=== PATIENT | male | born 1990 | race Caucasian/White ===

== ENCOUNTER 2017-03-29 11:15 | Emergency (ER) | payer SELFPAY ==
[~2017-03-29] VITALS: Ht 177.8 cm; Wt 78.2 kg
[~2017-03-29 11:15] MED LIST: HYDR1CAP85 PO; PIMO2TAB PO; SERT50TA PO; TRL300 PO
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
[2017-03-29 12:37] LABS: URINE APPEARANCE TURBID (CLEAR); URINE BILIRUBIN NEG (NEG); URINE COLOR DK YELLOW; URINE NITRITE NEG (NEG); URINE SPECIFIC GRAVITY 1.025 (1.000-1.030); UROBILINOGEN NEG (NEG)
[2017-03-29] MEDS ORDERED: LORAZEPAM 2 MG/ML 1 ML VIAL ONE (12:38)
[2017-03-29] MEDS ORDERED: HALOPERIDOL LACTATE 5 MG/ML 1 ML VIAL ONE (12:39)
[2017-03-29 12:42] LABS: MANUAL MICROSCOPIC REQUIRED? NO; REVIEW REQ? YES
[2017-03-29 12:45] LABS: MEAN CELL VOLUME 85.3 fL (80-100); MEAN CORPUSCULAR HEMOGLOBIN 30.8 pg (25-34); MEAN CORPUSCULAR HGB CONC 36.1 g/dl (32-36); MEAN PLATELET VOLUME 9.5 fL (7.4-10.4); PLATELET COUNT 339 K/uL (130-400); RED BLOOD COUNT 5.39 M/uL (4.7-6.1)
[2017-03-29 12:46] LABS: SULFASALICYLIC ACID NEG (NEG)
[2017-03-29 12:58] LABS: BENZODIAZEPINE, URINE POS (NEG); COCAINE,URINE NEG (NEG); PHENCYCLIDINE, URINE NEG (NEG)
[2017-03-29 13:13] LABS: BUN/CREATININE RATIO 7.9 (10-20); CALCIUM 9.5 mg/dl (8.5-10.1); POTASSIUM 3.7 mmol/L (3.5-5.1)
[2017-03-29 13:24] LABS: ALB/GLOB RATIO 1.4 (0.9-2); THYROID STIMULATING HORMONE 0.934 uIu/ml (0.300-4.500)
[2017-03-29 15:18] VITALS: O2SAT 98
--- NOTE | 2017-03-29 18:09 | DIAGNOSTIC IMAGING REPORT ---
HEAD WITHOUT CONTRAST (CT) CLINICAL HISTORY: 26 years-old Male with altered mental status. Acute altered mental status TECHNIQUE: Multiple axial CT images of the head were obtained without contrast. A dose lowering technique was utilized adhering to the principles of ALARA. CT DOSE: 537.48 mGy.cm COMPARISON: Head CT 10/02/2014. FINDINGS: No acute intracranial hemorrhage, midline shift, mass, large territorial ischemia or abnormal extra-axial collection. The calvarium is intact. The paranasal sinuses, mastoid air cells, and middle ear cavities are clear. IMPRESSION: No acute intracranial abnormality. The above report was generated using voice recognition software. It may contain grammatical, syntax or spelling errors. Electronically signed by: Al Owen M.D. 03/29/2017 6:07 PM Dictated Date/Time: 03/29/2017 6:04 PM
--- NOTE | 2017-03-29 23:31 | EMERGENCY ROOM VISIT NOTE ---
ED Visit Note First contact with patient: 17:57 This patient was originally seen by Dr. Deluca and a 302 petition was signed. The patient was signed out to me pending placement. Dr. Deluca also ordered a head CT which was unremarkable. The patient has been sleeping the entire time. The patient was signed out to Dr. Walker pending placement.
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
[2017-03-30] MEDS ORDERED: SERTRALINE HCL 100 MG TAB PO STA (13:19)
[2017-03-30] MEDS ORDERED: LORAZEPAM 1 MG TAB SL STA (13:20)
[2017-03-30] MEDS ORDERED: SERTRALINE HCL 50 MG TAB PO ONE (13:30)
[2017-03-30] MEDS ORDERED: NICOTINE 14 MG/24 HR TDSY TD STA (14:43)
[2017-03-30] MEDS ORDERED: IBUPROFEN 200 MG TAB PO STA (14:43)
--- NOTE | 2017-03-30 15:06 | EMERGENCY ROOM VISIT NOTE ---
ED Visit Note First contact with patient: 07:20 This patient was signed out to me at shift change by Dr. Walker. This patient had received Haldol and Ativan prior for psychosis and at 302 petition has been on completed. The patient was awaiting placement. He was comfortable. He did receive his morning Zoloft 150 mg. He also received Ativan 1 mg sublingual as he was felt feeling a little anxious but he was cooperative. He also received ibuprofen for a mild headache and nicotine patch. When I check on him he is resting comfortably and cooperative at this point. Maryanne , our psychiatric case manager specialist, is continuing to work on placement. He'll be signed out at shift change to the evening doctor.
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
[2017-03-31] MEDS ORDERED: SERT-234 PO (09:37)
[2017-03-31] MEDS ORDERED: SERTRALINE HCL 50 MG TAB PO ONE (10:30)
--- NOTE | 2017-03-31 14:34 | EMERGENCY ROOM VISIT NOTE ---
ED Visit Note First contact with patient: 14:33 s/o from Dr. Noel. 302 for psychosis and violent behavior ([facility] social security assessor ). Bedsearch prolonged in progress. Here 51 hours thus far. I reevaluated the patient on on and be calm and cooperative. This is consistent with report of his behavior since his initial sedation was metabolized after his violent outbursts. Upon further discussion with the patient I did find him to have delusional and bizarre thinking and pressured speech, tangential thoughts, and some confabulation or he did have insight into what brought him to the emergency department recognize that some may think is believed to be bizarre however he affirmed that they are true. Further explained to me the events leading to being brought by police initially which included him seeing a piece of glass outside of someone's house and being overwhelmed with the thought that if he were to break it "he would release the universe ". The patient did admit that this was bizarre however he feels he has recently had enlightenment after reading the Bible. Further acknowledges that his violent outburst was also unfortunate, however he reports that he has a history of PTSD regarding psychiatric hospitalization and felt threatened and provoked at that time. Given this patient's delusions and expressed thinking to act on these delusions at times I do believe his 302 continues to be appropriate. The case was discussed with psychiatry, Dr. Iglesias, who will arrange for psychiatry to evaluate the patient as a team in the morning. However in the interim, for his psychotic/delusional thoughts recommend 0.5 mg of Risperdal twice a day for now. Otherwise the patient continues to be calm and cooperative. Patient signed out to Dr. Suh.
[2017-03-31] MEDS ORDERED: NICOTINE 14 MG/24 HR TDSY ONE (16:47)
[2017-03-31] MEDS: RISPERIDONE ODT 0.5MG PO SCH (20:40)
[2017-04-01] MEDS ORDERED: ACETAMINOPHEN 500 MG TAB PO STA (05:20)
--- NOTE | 2017-04-01 07:37 | Psych Management Progress Note ---
Psychiatry Miscellaneous Date of Service: Apr 01, 2017. Patient has been reviewed with the psychiatric liaison nurse daily while awaiting placement in the emergency room on a 302 involuntary commitment for psychosis and agitation. I was contacted by the on-call psychiatrist last evening regarding the emergency room physician's request that the patient be seen by the psychiatry team today. Reviewed notes, and it appears the patient has been accepted to [facility] for inpatient psychiatric treatment. Spoke with Dr. Noel, who did not have a need for the patient to be seen today, as he is being transferred to another facility for inpatient treatment. Please notify us if this plan changes and we can be of assistance.
[2017-04-01] MEDS: RISPERIDONE ODT 0.5MG PO SCH (08:43)
[2017-04-01] MEDS ORDERED: LORAZEPAM 1 MG TAB PO STA (14:11)
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
[2017-04-01] MEDS: SERTRALINE HCL 50 MG TAB PO ONE (16:00)
[2017-04-01] MEDS ORDERED: RISPERIDONE ODT 1MG PO SCH (21:00)
[2017-04-01] MEDS ORDERED: RISPERIDONE 1 MG TAB PO STA (21:00)
--- NOTE | 2017-04-01 23:10 | EMERGENCY ROOM VISIT NOTE ---
ED Visit Note First contact with patient: 15:16 I received this patient in signout at the change of shift from Dr. Noel pending mental health placement. The patient was given 0.5 mg of oral Risperdal. He refused his Zoloft stating that he no longer takes this medication. Patient was evaluated by HOMER Thompson of psychiatry. occupational therapy director, Dr. Deluca, contacted Dr. Preciado of psychiatry. They feel strongly that they will have a bed available tomorrow. The patient and his father were informed of the plan. The patient is still under a 302 and has been refused by many facilities. He is not happy about being held in the emergency department for another night. The case has been signed out to Dr. Suh at the change of shift. Please see her notes for final disposition.
--- NOTE | 2017-04-02 06:45 | EMERGENCY ROOM VISIT NOTE ---
ED Visit Note First contact with patient: 06:44 No issues reported to me overnight by nursing staff. Pt awaiting placement. Has been here for 4 days[address] Signed out to Dr. Noel.
[2017-04-02 08:04] LABS: HYDROXYETHYLFLURAZEPAM CONF NEGATIVE NG/ML (CUTOFF=50); HYDROXYMIDAZOLAM NEGATIVE NG/ML (CUTOFF=50); HYDROXYTRIAZOLAM CONF NEGATIVE NG/ML (CUTOFF=50); TEMAZEPAM CONF NEGATIVE NG/ML (CUTOFF=50)
[2017-04-02] MEDS ORDERED: hydrOXYzine HCL 25 MG TAB PO PRN ×2 (08:15)
[2017-04-02] MEDS ORDERED: MAGNESIUM HYDROXIDE SUSP 30 ML UDC PO PRN (08:15)
[2017-04-02] MEDS ORDERED: ALUMINUM/MAGNESIUM SUSP 30 ML UDC PO PRN (08:15)
[2017-04-02] MEDS ORDERED: BISMUTH SUBSALICYLATE PER ML OMNICELL CHARGE PO PRN (08:15)
[2017-04-02] MEDS ORDERED: RISPERIDONE ODT 1MG PO PRN (08:15)
[2017-04-02] MEDS ORDERED: SODIUM CHLORIDE 0.65% NA SOLN 45 ML (OCEAN) PRN (08:15)
[2017-04-02] MEDS ORDERED: ACETAMINOPHEN 325 MG TAB PO PRN (08:15)
[2017-04-02] MEDS ORDERED: RISPERIDONE ODT 1MG PO SCH ×2 (09:00→21:00)
[2017-04-02] MEDS ORDERED: SERTRALINE HCL 100 MG TAB PO SCH (09:00)
[2017-04-02] MEDS ORDERED: RISPERIDONE ODT 1MG PO ONE (09:54)
[2017-04-02 09:56] VITALS: O2SAT 99
[2017-04-02 10:44] VITALS: BP 151/89; PULSE 89; TEMP 36.6; Ht 177.8 cm; Wt 78.2 kg
--- NOTE | 2017-04-02 11:52 | EMERGENCY ROOM VISIT NOTE ---
ED Visit Note The patient was admitted to 3 S at 9am. No issues.
[2017-04-03] MEDS ORDERED: RISPERIDONE ODT 1MG PO SCH (09:00)
== END 2017-04-02 09:45 | disposition still patient (30) ==
LOC: C.EDB 11:16 → C.EDA 04-02 09:45 → CANBEDREQ 04-02 11:03
DX: F30.9 Manic episode, unspecified (principal); F22 Delusional disorders; F11.21 Opioid dependence, in remission; F12.10 Cannabis abuse, uncomplicated; F10.10 Alcohol abuse, uncomplicated; F31.9 Bipolar disorder, unspecified; F95.2 Tourette's disorder; F42.8 Other obsessive-compulsive disorder; F17.200 Nicotine dependence, unspecified, uncomplicated

== ENCOUNTER 2017-04-02 08:09 | Inpatient (IN) | payer OTHER ==
[~2017-04-02] VITALS: Ht 177.8 cm; Wt 78.2 kg
[~2017-04-02 08:09] MED LIST changes: -HYDR1CAP85 PO; -PIMO2TAB PO; +SERT-234 PO; -SERT50TA PO; -TRL300 PO
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
[2017-04-02 11:27] VITALS: BP 151/89; PULSE 98; TEMP 36.6; Ht 177.8 cm; Wt 78.2 kg
[2017-04-02] MEDS ORDERED: ALUMINUM/MAGNESIUM SUSP 30 ML UDC PO PRN (13:30)
[2017-04-02] MEDS ORDERED: BISMUTH SUBSALICYLATE PER ML OMNICELL CHARGE PO PRN (13:30)
[2017-04-02] MEDS ORDERED: RISPERIDONE ODT 1MG PO PRN (13:30)
[2017-04-02] MEDS ORDERED: SODIUM CHLORIDE 0.65% NA SOLN 45 ML (OCEAN) PRN (13:30)
[2017-04-02] MEDS ORDERED: hydrOXYzine HCL 25 MG TAB PO PRN ×2 (13:30)
[2017-04-02] MEDS ORDERED: MAGNESIUM HYDROXIDE SUSP 30 ML UDC PO PRN (13:30)
[2017-04-02] MEDS: NICOTINE 21 MG/24 HR TDSY TD SCH (15:32)
[2017-04-02] MEDS: ACETAMINOPHEN 325 MG TAB PO PRN (18:37)
[2017-04-02] MEDS: RISPERIDONE ODT 1MG PO SCH (21:39)
[2017-04-03 06:53] VITALS: BP_SYST 126; BP_SYST 129; BP_DIAS 75; BP_DIAS 80; PULSE 69; PULSE 76; TEMP 36.5
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
[2017-04-03] MEDS: RISPERIDONE ODT 1MG PO SCH ×2 (08:18→21:09)
[2017-04-03] MEDS: LITHIUM CARBONATE SR 300 MG TAB (LITHOBID) PO SCH ×2 (15:52→18:23)
[2017-04-03] MEDS: ACETAMINOPHEN 325 MG TAB PO PRN (17:57)
[2017-04-03] MEDS ORDERED: LITHIUM CARBONATE SR 300 MG TAB (LITHOBID) PO SCH (20:00)
[2017-04-04 06:17] VITALS: BP_SYST 143; BP_SYST 162; BP_DIAS 88; BP_DIAS 92; PULSE 66; PULSE 98; TEMP 36.4
[2017-04-04] MEDS: NICOTINE 21 MG/24 HR TDSY TD SCH (08:25)
[2017-04-04] MEDS: RISPERIDONE ODT 1MG PO SCH (08:25)
[2017-04-04 09:01] LABS: CHOLESTEROL/HDL RATIO 3.7
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
[2017-04-04] MEDS: LITHIUM CARBONATE SR 300 MG TAB (LITHOBID) PO SCH ×2 (11:34→16:12)
[2017-04-04 19:22] VITALS: BP 150/80; PULSE 82; O2SAT 100
[2017-04-04] MEDS: RISPERIDONE 3 MG TAB PO SCH (21:25)
[2017-04-05 06:56] VITALS: BP 132/78; PULSE 75; TEMP 36.4
[2017-04-05] MEDS: LITHIUM CARBONATE SR 300 MG TAB (LITHOBID) PO SCH ×3 (08:23→15:55)
[2017-04-05] MEDS: RISPERIDONE 2 MG TAB PO SCH (08:23)
[2017-04-05] MEDS: NICOTINE 21 MG/24 HR TDSY TD SCH (08:31)
--- NOTE | 2017-04-05 12:14 | Psychiatric Progress Notes ---
Progress Note Date of Service Apr 05, 2017. Interval History Mark Mitchell is a 26-year-old male who currently lives in [place], has a history of bipolar disorder, and presented to the ER 03/29/17 with police due to manic and psychotic symptoms. He was in the emergency room for over 3 days on a 302 commitment, and was accepted on our unit when a bed became available. Chief Complaint "I feel like the medications are being changed every day". Subjective Patient was seen & assessed interval progress reviewed with Treatment Team. Per staff, the patient has been pleasant on the unit and fully participatory in the last 24 hours without acute events. His Risperdal was increased again slightly yesterday and staff report that he was complaining of some fatigue. Reviewed lithium level in therapeutic range following lithium loading and now on 300 mg 3 times a day with plan to recheck level early next week. On interview, patient expresses concern that he is feeling excessively drowsy at times however he denies feeling emotionally blunted. He reports to me that he chronically is on the hyper side and "my baseline isn't your baseline. I just want the doctors to remember that." He describes some grandiose thinking, for example reporting that he could teach all of the classes that are going on here. He indicates that he does perceive some benefit from being around others who are also struggling which makes him feel good about himself. He denies feeling slowed in his movements, unsteady in his gait, or dystonic this morning. He is willing to continue taking the Risperdal and lithium and demonstrates insight regarding his bipolar diagnosis. Review of Systems Neurologic: + problem reported (denies dystonia or imbalance) Sleep Information Total Hours of Sleep: 6.25 Meal Information Percent of Breakfast Consumed: 100 Percent of Lunch Consumed: 100 Percent of Dinner Consumed: 100 Mental Status Exam During interview pt is: alert and oriented, cooperative Appearance: appropriately dressed (pajama pants and a T-shirt), appropriately groomed, appeared stated age Eye contact is: good Motor behavior is: steady gait & station, psychomotor agitation (jiggling legs , fidgeting with hands) Speech: other (speech is rapid and over productive but he is interruptible) Affect: other (Expansive and bright.) Mood is: other (I'm good) Thought process: tangential, flight of ideas Thought content: other (The patient is expansive and demonstrates non- delusional grandiosity.) Suicidal thought are: denied Homicidal thoughts are: denied Hallucinations: denies auditory, denies visual Cognition: memory grossly intact, language grossly intact Intelligence estimated to be: consistent with level of education Insight: impaired Judgement: impaired Summary of Past History Records from [facility] received and reviewed. The patient saw SALMA Patterson, for an initial psychiatric assessment on 11/01/2015. He states he had been out of medications for several months, and had had a recent brief episodes of both depression and june. He also reported irritability, obsessive thoughts about his former relationship (had just broken up with a girlfriend), verbal aggression towards his mother, and sleep disruption. He denied compulsions, anxiety, PTSD, eating disorder, and substance abuse, but admitted he did abuse substances in the past. He reported problems with tics, which changed frequently, and moved to different body parts. He reported that he had been in family based therapy and had a blended case work aide in the past, but currently had no providers. He had seen Jammie Linares at [facility] in the past, but was noncompliant so ran out of medications. He reported a history of numerous arrests, and stated he was intoxicated on substances each time he was arrested. He had been incarcerated 5 times, the longest stay being 7-1/2 months in the [facility]. He was on probation at the time of the assessment. He was diagnosed with schizoaffective disorder, bipolar type, Tourette's, alcohol dependence, cannabis dependence, and opiate dependence. He was restarted on sertraline and Orap for tics and psychotic symptoms, as these had worked well in the past. He followed up 11/14/16 and reported improvement in mood, with 2 days of euphoria since the last appointment, and ongoing irritability. His tics have improved, including a neck twitch and a vocal twitch. He talked about "practicing my telepathy" and "playing mind games" with his mother. His Orap was increased to 1 mg every morning and 2 mg daily at bedtime, sertraline was continued, and he was started on Topamax 25 mg twice a day for mood stabilization. He was to return in 4 weeks for an appointment, but no further documentation was sent. Medication Trials (1) Past Psych Medications sertraline fluoxetine pimozide hydroxyzine oxcarbazepine Tenex ziprasidone aripiprazole risperidone lithium - on it for a long time, then just hit that plateau, became ineffective Depakote - briefly, can't recall response Frank Last Edited By: Yanely Preciado on Apr 03, 2017 10:14 Plan (1) Bipolar disorder 04/02 - Medically necessary private room for agitation, psychosis and june. Limit stimulation. - Continue risperidone, and increased to 1 mg in the morning and 2 mg daily at bedtime to target manic and psychotic symptoms. - Hold sertraline as this may be contributing to june. Contact PCP who has been prescribing this to coordinate care. - Check fasting lipid profile and glucose tomorrow morning for monitoring on an atypical antipsychotic. - Explore mood stabilizing options, possibly a return to lithium, which he reports was helpful for a time in the past. - Get records from Dr. Butt and Jammie Linares, whom he saw in the past. He will need referral for outpatient psychiatric care, and would also recommend therapy and case management. - Encourage group attendance and participation, educate the patient about his diagnosis, and work on healthy coping skills and discharge safety plan. - Family meeting with father whom he lives with. - Advised patient that I'll be filing for a 303 commitment as he is not yet ready for discharge, and he expressed understanding. 04/03 - 303 granted. - Fasting labs ordered for tomorrow. Continue risperidone 1mg qam and 2mg qhs. - Family meeting with mother held today, but will also need to involve father ( whom he lives with) prior to discharge. - [place] loading tonight, which patient consented to. He has been on lithium before and reports good response in the past. Check EKG today. Trough level tomorrow, then start maintenance dosing. - Discontinue private room as patient has been able to interact appropriately with others and has not been violent since 03/29. 04/04 - [place] level this morning after loading was 0.8. Will begin Lithobid 300 mg TID and recheck level on 04/07/17 - Increase dose of Risperidone to 2 mg qAM and 3 mg HS. - Patient remains manic, but by all reports is improving in that he is sleeping better, is less hyperverbal and pressured, to the degree that he does not interrupt others when they are addressing him, and his voice is less loud. - He remains somewhat grandiose, and his judgement and insight remain impaired, but he does not appear to be delusional at this point. 04/05 - Showing steady improvements and attenuation of acute june. We'll continue the lithium and Risperdal unchanged today which he is tolerating adequately. We'll plan to recheck lithium level on the as previously ordered. (2) Polysubstance abuse Patient reports a history of abusing many illicit and prescription drugs as well as alcohol. He had been sober for a period while on probation, but began using cannabis again this past summer. He has been to rehabilitation multiple times and in outpatient substance abuse treatment in the past. He should not be prescribed controlled substances outside of the hospital due to the high risk of abuse, misuse, and diversion. 04/04/17 The importance of maintaining sobriety and abstinence was reinforced with the patient. (3) Cannabis abuse Patient has been smoking cannabis since he went off probation this past summer, and has a long history of polysubstance abuse. As his symptoms improve, he will need ongoing education about the risks of substance abuse and the recommendations for abstinence. Discharge / Aftercare Planning [place] Care Physician: [place] [facility] [place]iatrist: Name: Jammie Stubbs PA-C Date of Appointment: Jun 06, 2017 Time of Appointment: 10:15 Appointment Notes: You are on the cancellation list for an earlier appt, Therapist: Name: None Visit Code E&M Code: 52901 Risk Factors Assessment Male: Yes : Yes /single/: Yes Higher / Fall in social status: No Access to guns: No Health problems: No Mental Health Diagnoses: Yes Substance use disorders: Yes Previous attempt: No Family history of suicide: No Previous psychiatric stay: Yes Hopelessness: No Smoker: Yes Protective Factors Assessment Denominational beliefs: Yes : No Responsible for young children: No Employed: Yes Stable relationships: No Supportive family: Yes Good rapport with provider: No Data Vital Signs Last 24 Hrs: Date Time Temp Pulse Resp B/P (MAP) Pulse Ox O2 Delivery O2 Flow Rate FiO2 04/05/17 06:56 36.4 75 04/05/17 06:56 36.4 75 16 132/78 (96) 04/04/17 19:22 82 16 150/80 (103) 100 Room Air Meds Administered Last 24 Hrs: Meds Administered (Past 24Hrs) Medications (Trade) Dose Ordered Sig/Yandy Route Start Time Stop Time Status Last Admin Dose Admin [place] Carbonate (Lithobid Tab) 600 mg 1600,1800 PO 04/03/17 16:00 04/03/17 18:01 DC 04/03/17 18:23 600 MG [place] Carbonate (Lithobid Tab) 900 mg 2000 PO 04/03/17 20:00 04/03/17 20:01 DC 04/03/17 21:04 900 MG [place] Carbonate (Lithobid Tab) 300 mg [id number] PO 04/04/17 12:00 05/04/17 11:59 04/05/17 08:23 300 MG Risperidone (Risperdal Tab) 2 mg QAM PO 04/05/17 09:00 05/05/17 08:59 04/05/17 08:23 2 MG Risperidone (Risperdal Tab) 3 mg HS PO 04/04/17 22:00 05/04/17 21:59 04/04/17 21:25 3 MG Problem Qualifiers (1) Bipolar disorder: Current bipolar episode type: manic Current episode severity: severe Psychotic features: with psychotic features
[2017-04-05] MEDS ORDERED: NICOTINE 7 MG/24 HR TDSY TD ONE (16:45)
[2017-04-05] MEDS: RISPERIDONE 3 MG TAB PO SCH (21:34)
[2017-04-06 07:11] VITALS: BP_SYST 149; BP_SYST 150; BP_DIAS 77; BP_DIAS 84; PULSE 81; PULSE 88; TEMP 36.4
[2017-04-06] MEDS: RISPERIDONE 2 MG TAB PO SCH (08:24)
[2017-04-06] MEDS: LITHIUM CARBONATE SR 300 MG TAB (LITHOBID) PO SCH ×3 (08:24→15:43)
[2017-04-06] MEDS: NICOTINE 7 MG/24 HR TDSY TD SCH (08:25)
[2017-04-06 08:56] VITALS: BP_SYST 149; BP_SYST 150; BP_DIAS 77; BP_DIAS 84; PULSE 81; PULSE 88; TEMP 36.4
--- NOTE | 2017-04-06 13:04 | Psychiatric Progress Notes ---
Progress Note Date of Service Apr 06, 2017. Interval History Mark Mitchell is a 26-year-old male who currently lives in [place], has a history of bipolar disorder, and presented to the ER 03/29/17 with police due to manic and psychotic symptoms. He was in the emergency room for over 3 days on a 302 commitment, and was accepted on our unit when a bed became available. Chief Complaint "I'm doing very well thank you". Subjective Patient was seen & assessed interval progress reviewed with Treatment Team. Per staff, patient is participating well in groups. Continues to complain of feeling foggy and napping on and off. On interview today he describes feeling more "balanced." He now expresses feeling grateful for an opportunity to sleep. He again denies dystonia or akathisia. "It really makes a difference when I don't feel like I'm going to jump out of my skin." Review of Systems Neurologic: No memory loss, No paralysis, No weakness, No numbness/tingling, No vertigo, No balance problems, No problem reported Psychiatric: + problem reported (denies agitation) Sleep Information Total Hours of Sleep: 9.25 Meal Information Percent of Breakfast Consumed: 100 Percent of Lunch Consumed: 100 Percent of Dinner Consumed: 100 Mental Status Exam During interview pt is: alert and oriented, cooperative Appearance: appropriately dressed, appropriately groomed, appeared stated age Eye contact is: good Motor behavior is: steady gait & station, psychomotor agitation (but does appear less restless today. He shakes my hand with both of his in a dramatic manner) Speech: other (speech is notably less pressured today) Affect: other (Expansive and bright.) Mood is: other (good) Thought process: other (thoughts are quick but logical) Thought content: other (less grandiosity evident today) Suicidal thought are: denied Homicidal thoughts are: denied Hallucinations: denies auditory, denies visual Cognition: memory grossly intact, language grossly intact Intelligence estimated to be: consistent with level of education Insight: limited Judgement: limited Summary of Past History Records from [facility] received and reviewed. The patient saw SALMA Patterson, for an initial psychiatric assessment on 11/01/2015. He states he had been out of medications for several months, and had had a recent brief episodes of both depression and june. He also reported irritability, obsessive thoughts about his former relationship (had just broken up with a girlfriend), verbal aggression towards his mother, and sleep disruption. He denied compulsions, anxiety, PTSD, eating disorder, and substance abuse, but admitted he did abuse substances in the past. He reported problems with tics, which changed frequently, and moved to different body parts. He reported that he had been in family based therapy and had a blended briefcase sewer in the past, but currently had no providers. He had seen Jammie Linares at [facility] in the past, but was noncompliant so ran out of medications. He reported a history of numerous arrests, and stated he was intoxicated on substances each time he was arrested. He had been incarcerated 5 times, the longest stay being [facility] in [facility]. He was on probation at the time of the assessment. He was diagnosed with schizoaffective disorder, bipolar type, Tourette's, alcohol dependence, cannabis dependence, and opiate dependence. He was restarted on sertraline and Orap for tics and psychotic symptoms, as these had worked well in the past. He followed up 11/14/16 and reported improvement in mood, with 2 days of euphoria since the last appointment, and ongoing irritability. His tics have improved, including a neck twitch and a vocal twitch. He talked about "practicing my telepathy" and "playing mind games" with his mother. His Orap was increased to 1 mg every morning and 2 mg daily at bedtime, sertraline was continued, and he was started on Topamax 25 mg twice a day for mood stabilization. He was to return in 4 weeks for an appointment, but no further documentation was sent. Medication Trials (1) Past Psych Medications sertraline fluoxetine pimozide hydroxyzine oxcarbazepine Tenex ziprasidone aripiprazole risperidone lithium - on it for a long time, then just hit that plateau, became ineffective Depakote - briefly, can't recall response Frank Last Edited By: Yanely Preciado on Apr 03, 2017 10:14 Plan (1) Bipolar disorder 04/02 - Medically necessary private room for agitation, psychosis and june. Limit stimulation. - Continue risperidone, and increased to 1 mg in the morning and 2 mg daily at bedtime to target manic and psychotic symptoms. - Hold sertraline as this may be contributing to june. Contact PCP who has been prescribing this to coordinate care. - Check fasting lipid profile and glucose tomorrow morning for monitoring on an atypical antipsychotic. - Explore mood stabilizing options, possibly a return to lithium, which he reports was helpful for a time in the past. - Get records from Dr. Butt and Jammie Linares, whom he saw in the past. He will need referral for outpatient psychiatric care, and would also recommend therapy and case management. - Encourage group attendance and participation, educate the patient about his diagnosis, and work on healthy coping skills and discharge safety plan. - Family meeting with father whom he lives with. - Advised patient that I'll be filing for a 303 commitment as he is not yet ready for discharge, and he expressed understanding. 04/03 - 303 granted. - Fasting labs ordered for tomorrow. Continue risperidone 1mg qam and 2mg qhs. - Family meeting with mother held today, but will also need to involve father ( whom he lives with) prior to discharge. - [place] loading tonight, which patient consented to. He has been on lithium before and reports good response in the past. Check EKG today. Trough level tomorrow, then start maintenance dosing. - Discontinue private room as patient has been able to interact appropriately with others and has not been violent since 03/29. 04/04 - [place] level this morning after loading was 0.8. Will begin Lithobid 300 mg TID and recheck level on 04/07/17 - Increase dose of Risperidone to 2 mg qAM and 3 mg HS. - Patient remains manic, but by all reports is improving in that he is sleeping better, is less hyperverbal and pressured, to the degree that he does not interrupt others when they are addressing him, and his voice is less loud. - He remains somewhat grandiose, and his judgement and insight remain impaired, but he does not appear to be delusional at this point. 04/05 - Showing steady improvements and attenuation of acute june. We'll continue the lithium and Risperdal unchanged today which he is tolerating adequately. We'll plan to recheck lithium level on the as previously ordered. 04/06 - Continues to show improvement with reduction in manic symptomatology and will continue current medication regimen unchanged today which appears to be well tolerated. - [place] level ordered for tomorrow a.m. (2) Polysubstance abuse Patient reports a history of abusing many illicit and prescription drugs as well as alcohol. He had been sober for a period while on probation, but began using cannabis again this past summer. He has been to rehabilitation multiple times and in outpatient substance abuse treatment in the past. He should not be prescribed controlled substances outside of the hospital due to the high risk of abuse, misuse, and diversion. 04/04/17 The importance of maintaining sobriety and abstinence was reinforced with the patient. (3) Cannabis abuse Patient has been smoking cannabis since he went off probation this past summer, and has a long history of polysubstance abuse. As his symptoms improve, he will need ongoing education about the risks of substance abuse and the recommendations for abstinence. Discharge / Aftercare Planning Primary Care Physician: Name: [facility] Psychiatrist: Name: Jammie Stubbs PA-C Date of Appointment: Jun 06, 2017 Time of Appointment: 10:15 Appointment Notes: You are on the cancellation list for an earlier appt, Therapist: Name: None Visit Code E&M Code: 10728 Risk Factors Assessment Male: Yes : Yes /single/: Yes Higher / Fall in social status: No Access to guns: No Health problems: No Mental Health Diagnoses: Yes Substance use disorders: Yes Previous attempt: No Family history of suicide: No Previous psychiatric stay: Yes Hopelessness: No Smoker: Yes Protective Factors Assessment Protestant beliefs: Yes : No Responsible for young children: No Employed: Yes Stable relationships: No Supportive family: Yes Good rapport with provider: No Data Vital Signs Last 24 Hrs: Date Time Temp Pulse Resp B/P (MAP) Pulse Ox O2 Delivery O2 Flow Rate FiO2 04/06/17 08:56 36.4 81 16 150/77 (101) 88 149/84 (105) 04/06/17 07:11 36.4 81 16 150/77 88 149/84 Meds Administered Last 24 Hrs: Meds Administered (Past 24Hrs) Medications (Trade) Dose Ordered Sig/Yanyd Route Start Time Stop Time Status Last Admin Dose Admin Risperidone (Risperdal Tab) 2 mg QAM PO 04/05/17 09:00 05/05/17 08:59 04/06/17 08:24 2 MG Risperidone (Risperdal Tab) 3 mg HS PO 04/04/17 22:00 05/04/17 21:59 04/05/17 21:34 3 MG Nicotine (Nicoderm Cq 7 Mg Patch) 1 patch QAM TD 04/06/17 09:00 05/06/17 08:59 04/06/17 08:25 1 PATCH Miscellaneous (Remove Nicoderm Patch) 1 ea HS N/A 04/05/17 22:00 05/05/17 21:59 04/05/17 21:32 1 EA Nicotine (Nicoderm Cq 7 Mg Patch) 1 patch 1645 ONCE TD 04/05/17 16:45 04/05/17 16:46 DC 04/05/17 17:34 1 PATCH Problem Qualifiers (1) Bipolar disorder: Current bipolar episode type: manic Current episode severity: severe Psychotic features: with psychotic features
[2017-04-06] MEDS: RISPERIDONE 3 MG TAB PO SCH (21:53)
[2017-04-07 06:29] VITALS: BP_SYST 135; BP_SYST 138; BP_DIAS 88; BP_DIAS 90; PULSE 71; PULSE 85; TEMP 36.4
[2017-04-07 06:31] VITALS: BP_SYST 135; BP_SYST 138; BP_DIAS 88; BP_DIAS 90; PULSE 71; PULSE 85; TEMP 36.4
[2017-04-07] MEDS: LITHIUM CARBONATE SR 300 MG TAB (LITHOBID) PO SCH ×2 (09:34→12:10)
[2017-04-07] MEDS: RISPERIDONE 2 MG TAB PO SCH (09:34)
[2017-04-07] MEDS: NICOTINE 7 MG/24 HR TDSY TD SCH (09:35)
--- NOTE | 2017-04-07 13:35 | Psychiatric Progress Notes ---
Progress Note Date of Service Apr 07, 2017. Interval History Mark Mitchell is a 26-year-old male who currently lives in [place], has a history of bipolar disorder, and presented to the ER 03/29/17 with police due to manic and psychotic symptoms. He was in the emergency room for over 3 days on a 302 commitment, and was accepted on our unit when a bed became available. Chief Complaint "I can't lie, I'm a little frustrated.". Subjective Patient was seen & assessed interval progress reviewed with Treatment Team. The patient says that he is frustrated today, feeling that his treatment isn't moving as fast as he would like it to. He says that he plans to withdraw from [facility] for this semester and return, "When I'm back on my feet.". He voices commitment to staying on the meds. [place] level today is 0.4 and is in agreement with plan to increase Lithobid to 1200 mg. daily and push to HS. He feels that he is back to baseline in terms of speed of his thinking and energy level. He qualifies this to remind me that he has Tourette's and ADHD and is always moving and talking faster than others. He agrees that he has had to adjust to being on meds that slow him down as he likes the creative person he is when hypomanic. In discussing previous barriers to treatment, he says that money has been a problem. He was "resistant" to paying his copays before and eventually stopped seeing his psychiatric provider when he had a bill in arrears. He was also at times resistant to taking the meds, both of which he says he is now OK with. We discuss the need to have prompt psych follow up after discharge in view of lithium and need for levels, and he agrees that he should not be discharged before appropriate appts are found. Review of Systems Constitutional: No fever, No chills, No sweats, No weight loss, No weakness, No fatigue, No problem reported ENT: No hearing loss, No unusual epistaxis, No nasal symptoms, No sore throat, No tinnitus, No dental problems, No trouble swallowing, No problem reported Respiratory: No cough, No sputum, No wheezing, No shortness of breath, No dyspnea on exertion, No dyspnea at rest, No hemoptysis, No problem reported Cardiovascular: No chest pain, No orthopnea, No PND, No edema, No claudication , No palpitations, No problem reported Musculoskeletal: No joint pain, No muscle pain, No swelling, No calf pain, No problem reported Neurologic: No memory loss, No paralysis, No weakness, No numbness/tingling, No vertigo, No balance problems, No problem reported Psychiatric: + problem reported ("Frustrated") Sleep Information Total Hours of Sleep: 5.75 Meal Information Percent of Breakfast Consumed: 100 Percent of Lunch Consumed: 100 Percent of Dinner Consumed: 100 Mental Status Exam During interview pt is: alert and oriented, cooperative Appearance: appropriately dressed, appropriately groomed, appeared stated age Eye contact is: good Motor behavior is: steady gait & station, psychomotor agitation (but does appear less restless today. He shakes my hand with both of his in a dramatic manner) Speech: loud, other (rapid) Affect: blunted Mood is: other ("frustrated") Thought process: tangential Thought content: reality based without delusions, other (less grandiosity evident today) Suicidal thought are: denied Homicidal thoughts are: denied Hallucinations: denies auditory, denies visual Cognition: memory grossly intact, language grossly intact Intelligence estimated to be: consistent with level of education Insight: limited Judgement: limited Summary of Past History Records from [facility] received and reviewed. The patient saw SALMA Patterson for an initial psychiatric assessment on 11/01/2015. He states he had been out of medications for several months, and had had a recent brief episodes of both depression and june. He also reported irritability, obsessive thoughts about his former relationship (had just broken up with a girlfriend), verbal aggression towards his mother, and sleep disruption. He denied compulsions, anxiety, PTSD, eating disorder, and substance abuse, but admitted he did abuse substances in the past. He reported problems with tics, which changed frequently, and moved to different body parts. He reported that he had been in family based therapy and had a blended therapeutic case manager in the past, but currently had no providers. He had seen Jammie Linares at [facility] in the past, but was noncompliant so ran out of medications. He reported a history of numerous arrests, and stated he was intoxicated on substances each time he was arrested. He had been incarcerated 5 times, the longest stay being 7-1/2 months in the [facility]. He was on probation at the time of the assessment. He was diagnosed with schizoaffective disorder, bipolar type, Tourette's, alcohol dependence, cannabis dependence, and opiate dependence. He was restarted on sertraline and Orap for tics and psychotic symptoms, as these had worked well in the past. He followed up 11/14/16 and reported improvement in mood, with 2 days of euphoria since the last appointment, and ongoing irritability. His tics have improved, including a neck twitch and a vocal twitch. He talked about "practicing my telepathy" and "playing mind games" with his mother. His Orap was increased to 1 mg every morning and 2 mg daily at bedtime, sertraline was continued, and he was started on Topamax 25 mg twice a day for mood stabilization. He was to return in 4 weeks for an appointment, but no further documentation was sent. Medication Trials (1) Past Psych Medications sertraline fluoxetine pimozide hydroxyzine oxcarbazepine Tenex ziprasidone aripiprazole risperidone lithium - on it for a long time, then just hit that plateau, became ineffective Depakote - briefly, can't recall response Frank Last Edited By: Yanely Preciado on Apr 03, 2017 10:14 Impression The patient is frustrated with being in the hospital, but is appropriate in his behavior. His speech remains rapid and thoughts tangential but he admits the meds are slowing him down. [place] level today is 0.4 so will increase Lithobid to 1200 mg and redistribute all to HS. His OP provider cannot give him an appt until May, but the patient will need to be seen sooner in view of need for lithium adjustments and med management. Plan (1) Bipolar disorder 04/02 - Medically necessary private room for agitation, psychosis and june. Limit stimulation. - Continue risperidone, and increased to 1 mg in the morning and 2 mg daily at bedtime to target manic and psychotic symptoms. - Hold sertraline as this may be contributing to june. Contact PCP who has been prescribing this to coordinate care. - Check fasting lipid profile and glucose tomorrow morning for monitoring on an atypical antipsychotic. - Explore mood stabilizing options, possibly a return to lithium, which he reports was helpful for a time in the past. - Get records from Dr. Butt and Jammie [place], whom he saw in the past. He will need referral for outpatient psychiatric care, and would also recommend therapy and case management. - Encourage group attendance and participation, educate the patient about his diagnosis, and work on healthy coping skills and discharge safety plan. - Family meeting with father whom he lives with. - Advised patient that I'll be filing for a 303 commitment as he is not yet ready for discharge, and he expressed understanding. 04/03 - 303 granted. - Fasting labs ordered for tomorrow. Continue risperidone 1mg qam and 2mg qhs. - Family meeting with mother held today, but will also need to involve father ( whom he lives with) prior to discharge. - [place] loading tonight, which patient consented to. He has been on lithium before and reports good response in the past. Check EKG today. Trough level tomorrow, then start maintenance dosing. - Discontinue private room as patient has been able to interact appropriately with others and has not been violent since 03/29. 04/04 - [place] level this morning after loading was 0.8. Will begin Lithobid 300 mg TID and recheck level on 04/07/17 - Increase dose of Risperidone to 2 mg qAM and 3 mg HS. - Patient remains manic, but by all reports is improving in that he is sleeping better, is less hyperverbal and pressured, to the degree that he does not interrupt others when they are addressing him, and his voice is less loud. - He remains somewhat grandiose, and his judgement and insight remain impaired, but he does not appear to be delusional at this point. 04/05 - Showing steady improvements and attenuation of acute june. We'll continue the lithium and Risperdal unchanged today which he is tolerating adequately. We'll plan to recheck lithium level on the as previously ordered. 04/06 - Continues to show improvement with reduction in manic symptomatology and will continue current medication regimen unchanged today which appears to be well tolerated. - [place] level ordered for tomorrow a.m. 04/07 - Increase Lithobid to 1200 mg. all at HS (2) Polysubstance abuse Patient reports a history of abusing many illicit and prescription drugs as well as alcohol. He had been sober for a period while on probation, but began using cannabis again this past summer. He has been to rehabilitation multiple times and in outpatient substance abuse treatment in the past. He should not be prescribed controlled substances outside of the hospital due to the high risk of abuse, misuse, and diversion. 04/04/17 The importance of maintaining sobriety and abstinence was reinforced with the patient. (3) Cannabis abuse Patient has been smoking cannabis since he went off probation this past summer, and has a long history of polysubstance abuse. As his symptoms improve, he will need ongoing education about the risks of substance abuse and the recommendations for abstinence. Discharge / Aftercare Planning Primary Care Physician: Name: [facility] Psychiatrist: Name: Jammie Stubbs PA-C Date of Appointment: Jun 06, 2017 Time of Appointment: 10:15 Appointment Notes: You are on the cancellation list for an earlier appt, Therapist: Name: Cece Visit Code E&M Code: 87572 Risk Factors Assessment Male: Yes : Yes /single/: Yes Higher / Fall in social status: No Access to guns: No Health problems: No Mental Health Diagnoses: Yes Substance use disorders: Yes Previous attempt: No Family history of suicide: No Previous psychiatric stay: Yes Hopelessness: No Smoker: Yes Protective Factors Assessment Tenriism beliefs: Yes : No Responsible for young children: No Employed: Yes Stable relationships: No Supportive family: Yes Good rapport with provider: No Data Vital Signs Last 24 Hrs: Date Time Temp Pulse Resp B/P (MAP) Pulse Ox O2 Delivery O2 Flow Rate FiO2 04/07/17 06:31 36.4 71 18 135/90 85 138/88 04/07/17 06:29 36.4 71 18 135/90 (105) 85 138/88 (105) Meds Administered Last 24 Hrs: Meds Administered (Past 24Hrs) Medications (Trade) Dose Ordered Sig/Yandy Route Start Time Stop Time Status Last Admin Dose Admin Nicotine (Nicoderm Cq 7 Mg Patch) 1 patch QAM TD 04/06/17 09:00 05/06/17 08:59 04/06/17 08:25 1 PATCH Miscellaneous (Remove Nicoderm Patch) 1 ea HS N/A 04/05/17 22:00 05/05/17 21:59 04/06/17 21:54 1 EA Nicotine (Nicoderm Cq 7 Mg Patch) 1 patch 1645 ONCE TD 04/05/17 16:45 04/05/17 16:46 DC 04/05/17 17:34 1 PATCH Lab Results Last 24 Hrs: Last 24 Hours Test 04/07/17 07:46 [place] Level 0.4 mMOL/L Problem Qualifiers (1) Bipolar disorder: Current bipolar episode type: manic Current episode severity: severe Psychotic features: with psychotic features
[2017-04-07] MEDS ORDERED: LITHIUM CARBONATE SR 300 MG TAB (LITHOBID) PO ONE (22:00)
[2017-04-07] MEDS: RISPERIDONE 3 MG TAB PO SCH (22:17)
[2017-04-08 06:54] VITALS: BP_SYST 131; BP_SYST 143; BP_DIAS 80; BP_DIAS 84; PULSE 79; PULSE 90; TEMP 36.5
[2017-04-08 06:55] VITALS: BP 131/80; PULSE 79; PULSE 90; TEMP 36.5; O2SAT 100
[2017-04-08] MEDS: RISPERIDONE 2 MG TAB PO SCH (07:56)
[2017-04-08] MEDS: NICOTINE 7 MG/24 HR TDSY TD SCH (07:57)
--- NOTE | 2017-04-08 14:21 | Psychiatric Progress Notes ---
Progress Note Date of Service Apr 08, 2017. Interval History Mark Mitchell is a 26-year-old male who currently lives in [place], has a history of bipolar disorder, and presented to the ER 03/29/17 with police due to manic and psychotic symptoms. He was in the emergency room for over 3 days on a 302 commitment, and was accepted on our unit when a bed became available. Chief Complaint "OK but I'm anxious about the plans here. ". Subjective Patient was seen & assessed interval progress reviewed with Treatment Team. Doug says that he is doing OK. He had a good conversation with one of the counselor's last evening that helped him to put the hospitalization and his condition in perspective, seeing it as "recalibrating". He was able to relax more and "woke up on the right side of the bed" today. He was up early, at 0615 , but was able to rest for another hour or so after breakfast. He tolerated the shift in lithium dosage last night, and denies tremor or GI symptoms. He is still focused on wanting to leave as soon as possible but understands our concerns that appropriate follow up be scheduled first. He says that he has enjoyed the time with an elderly peer, who he walks with in the evening, talking with her. Review of Systems Constitutional: No fever, No chills, No sweats, No weight loss, No weakness, No fatigue, No problem reported ENT: No hearing loss, No unusual epistaxis, No nasal symptoms, No sore throat, No tinnitus, No dental problems, No trouble swallowing, No problem reported Respiratory: No cough, No sputum, No wheezing, No shortness of breath, No dyspnea on exertion, No dyspnea at rest, No hemoptysis, No problem reported Cardiovascular: No chest pain, No orthopnea, No PND, No edema, No claudication , No palpitations, No problem reported Abdomen: No pain, No nausea, No vomiting, No diarrhea, No constipation, No GI bleeding, No problem reported Musculoskeletal: No joint pain, No muscle pain, No swelling, No calf pain, No problem reported Neurologic: No memory loss, No paralysis, No weakness, No numbness/tingling, No vertigo, No balance problems, No problem reported Psychiatric: No depression symptoms, No anhedonism, No anxiety, No insomnia, No substance abuse, No problem reported Integumentary: No rash, No itch, No new/changing skin lesions, No color change , No bleeding, No problem reported Sleep Information Total Hours of Sleep: 6.50 Meal Information Percent of Breakfast Consumed: 100 Percent of Lunch Consumed: 100 Percent of Dinner Consumed: 100 Mental Status Exam During interview pt is: alert and oriented, cooperative Appearance: appropriately dressed, appropriately groomed, appeared stated age Eye contact is: good Motor behavior is: steady gait & station, psychomotor agitation (but does appear less restless today. He shakes my hand with both of his in a dramatic manner) Speech: loud, other (rapid) Affect: blunted Mood is: other ("frustrated") Thought process: tangential Thought content: reality based without delusions, other (less grandiosity evident today) Suicidal thought are: denied Homicidal thoughts are: denied Hallucinations: denies auditory, denies visual Cognition: memory grossly intact, language grossly intact Intelligence estimated to be: consistent with level of education Insight: limited Judgement: limited Summary of Past History [facility] from [facility] received and reviewed. The patient saw SALMA Patterson, for an initial psychiatric assessment on 11/01/2015. He states he had been out of medications for several months, and had had a recent brief episodes of both depression and june. He also reported irritability, obsessive thoughts about his former relationship (had just broken up with a girlfriend), verbal aggression towards his mother, and sleep disruption. He denied compulsions, anxiety, PTSD, eating disorder, and substance abuse, but admitted he did abuse substances in the past. He reported problems with tics, which changed frequently, and moved to different body parts. 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 He had seen Jammie Linares at [facility] in the past, but was noncompliant so ran out of medications. He reported a history of numerous arrests, and stated he was intoxicated on substances each time he was arrested. He had been incarcerated 5 times, the longest stay being 7-1/2 months in the [facility]. He was on probation at the time of the assessment. He was diagnosed with schizoaffective disorder, bipolar type, Tourette's, alcohol dependence, cannabis dependence, and opiate dependence. He was restarted on sertraline and Orap for tics and psychotic symptoms, as these had worked well in the past. He followed up 11/14/16 and reported improvement in mood, with 2 days of euphoria since the last appointment, and ongoing irritability. His tics have improved, including a neck twitch and a vocal twitch. He talked about "practicing my telepathy" and "playing mind games" with his mother. His Orap was increased to 1 mg every morning and 2 mg daily at bedtime, sertraline was continued, and he was started on Topamax 25 mg twice a day for mood stabilization. He was to return in 4 weeks for an appointment, but no further documentation was sent. Medication Trials (1) Past Psych Medications sertraline fluoxetine pimozide hydroxyzine oxcarbazepine Tenex ziprasidone aripiprazole risperidone lithium - on it for a long time, then just hit that plateau, became ineffective Depakote - briefly, can't recall response Frank Last Edited By: Yanely Preciado on Apr 03, 2017 10:14 Impression The patient is frustrated with being in the hospital, but is appropriate in his behavior. His speech remains rapid and thoughts tangential but he admits the meds are slowing him down. We are still working to find him aftercare which is difficult given that his MA has not been approved. His appt with Jammie MARSH is not scheduled until May since he needs a new patient appt and so will need a bridging appt since his lithium will need to be monitored and adjusted. He has a long history of noncompliance and so leaving this up to him to schedule would likely lead to noncompliance. Plan (1) Bipolar disorder 04/02 - Medically necessary private room for agitation, psychosis and june. Limit stimulation. - Continue risperidone, and increased to 1 mg in the morning and 2 mg daily at bedtime to target manic and psychotic symptoms. - Hold sertraline as this may be contributing to june. Contact PCP who has been prescribing this to coordinate care. - Check fasting lipid profile and glucose tomorrow morning for monitoring on an atypical antipsychotic. - Explore mood stabilizing options, possibly a return to lithium, which he reports was helpful for a time in the past. - Get records from Dr. Butt and Jammie Linares, whom he saw in the past. He will need referral for outpatient psychiatric care, and would also recommend therapy and case management. - Encourage group attendance and participation, educate the patient about his diagnosis, and work on healthy coping skills and discharge safety plan. - Family meeting with father whom he lives with. - Advised patient that I'll be filing for a 303 commitment as he is not yet ready for discharge, and he expressed understanding. 04/03 - 303 granted. - Fasting labs ordered for tomorrow. Continue risperidone 1mg qam and 2mg qhs. - Family meeting with mother held today, but will also need to involve father ( whom he lives with) prior to discharge. - [place] loading tonight, which patient consented to. He has been on lithium before and reports good response in the past. Check EKG today. Trough level tomorrow, then start maintenance dosing. - Discontinue private room as patient has been able to interact appropriately with others and has not been violent since 03/29. 04/04 - [place] level this morning after loading was 0.8. Will begin Lithobid 300 mg TID and recheck level on 04/07/17 - Increase dose of Risperidone to 2 mg qAM and 3 mg HS. - Patient remains manic, but by all reports is improving in that he is sleeping better, is less hyperverbal and pressured, to the degree that he does not interrupt others when they are addressing him, and his voice is less loud. - He remains somewhat grandiose, and his judgement and insight remain impaired, but he does not appear to be delusional at this point. 04/05 - Showing steady improvements and attenuation of acute june. We'll continue the lithium and Risperdal unchanged today which he is tolerating adequately. We'll plan to recheck lithium level on the as previously ordered. 04/06 - Continues to show improvement with reduction in manic symptomatology and will continue current medication regimen unchanged today which appears to be well tolerated. - [place]inai level ordered for tomorrow a.m. 04/07 - Increase Lithobid to 1200 mg. all at HS 04/08 -continue current meds - Continue to look for appropriate OP tx or bridge appt. (2) Polysubstance abuse Patient reports a history of abusing many illicit and prescription drugs as well as alcohol. He had been sober for a period while on probation, but began using cannabis again this past summer. He has been to rehabilitation multiple times and in outpatient substance abuse treatment in the past. He should not be prescribed controlled substances outside of the hospital due to the high risk of abuse, misuse, and diversion. 04/04/17 The importance of maintaining sobriety and abstinence was reinforced with the patient. (3) Cannabis abuse Patient has been smoking cannabis since he went off probation this past summer, and has a long history of polysubstance abuse. As his symptoms improve, he will need ongoing education about the risks of substance abuse and the recommendations for abstinence. Discharge / Aftercare Planning Primary Care Physician: Name: [facility] Psychiatrist: Name: Jammie Stubbs PA-C Date of Appointment: Jun 06, 2017 Time of Appointment: 10:15 Appointment Notes: You are on the cancellation list for an earlier appt, Therapist: Name: Cece Visit Code E&M Code: 35572 Risk Factors Assessment Male: Yes : Yes /single/: Yes Higher / Fall in social status: No Access to guns: No Health problems: No Mental Health Diagnoses: Yes Substance use disorders: Yes Previous attempt: No Family history of suicide: No Previous psychiatric stay: Yes Hopelessness: No Smoker: Yes Protective Factors Assessment Christian beliefs: Yes : No Responsible for young children: No Employed: Yes Stable relationships: No Supportive family: Yes Good rapport with provider: No Data Vital Signs Last 24 Hrs: Date Time Temp Pulse Resp B/P (MAP) Pulse Ox O2 Delivery O2 Flow Rate FiO2 04/08/17 06:55 36.5 79 16 131/80 (97) 100 Room Air 90 04/08/17 06:54 36.5 79 16 143/84 90 131/80 Meds Administered Last 24 Hrs: Meds Administered (Past 24Hrs) Medications (Trade) Dose Ordered Sig/Yandy Route Start Time Stop Time Status Last Admin Dose Admin Sinai Carbonate (Lithobid Tab) 600 mg 2200 ONCE PO 04/07/17 22:00 04/07/17 22:01 DC 04/07/17 22:17 600 MG Lab Results Last 24 Hrs: Test 04/04/17 08:08 04/07/17 07:46 Fasting Glucose 90 mg/dl (70-99) Triglycerides Level 140 mg/dl (0-150) Cholesterol Level 157 mg/dl (0-200) HDL Cholesterol 42 mg/dl LDL Cholesterol, Calculated 87 mg/dl VLDL Cholesterol, Calculated 28 mg/dl Cholesterol/HDL Ratio 3.7 Sinai Level 0.4 mMOL/L (0.6-1.2) Problem Qualifiers (1) Bipolar disorder: Current bipolar episode type: manic Current episode severity: severe Psychotic features: with psychotic features
[2017-04-08] MEDS ORDERED: LITHIUM CARBONATE SR 300 MG TAB (LITHOBID) PO SCH (22:00)
[2017-04-08] MEDS: RISPERIDONE 3 MG TAB PO SCH (22:14)
[2017-04-09 07:08] VITALS: BP_SYST 120; BP_SYST 122; BP_DIAS 75; BP_DIAS 86; PULSE 91; TEMP 36.4
[2017-04-09] MEDS: NICOTINE 7 MG/24 HR TDSY TD SCH (07:44)
[2017-04-09] MEDS: RISPERIDONE 2 MG TAB PO SCH (07:44)
[2017-04-09] MEDS ORDERED: RSP2 PO (12:06)
[2017-04-09] MEDS ORDERED: LTHCR300 PO (12:06)
[2017-04-09] MEDS ORDERED: RSP3 PO (12:06)
[2017-04-09] MEDS ORDERED: NICO7DIS7 TD (12:06)
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
== END 2017-04-09 13:30 | disposition home or self-care (01) | DRG 885 ==
LOC: C.MHU 08:09
PROVIDERS: ADMIT Psychiatry & Neurology Psychiatry; ATTEND Psychiatry & Neurology Psychiatry
DX: F31.2 Bipolar disorder, current episode manic severe with psychotic features (principal); F12.10 Cannabis abuse, uncomplicated; F95.2 Tourette's disorder; F42.9 Obsessive-compulsive disorder, unspecified; Z81.8 Family history of other mental and behavioral disorders

== ENCOUNTER 2017-04-21 09:08 | Emergency (ER) | payer OTHER ==
[~2017-04-21] VITALS: Ht 177.8 cm; Wt 83.0 kg
[~2017-04-21 09:08] MED LIST changes: +LTHCR300 PO; +NICO7DIS7 TD; +RSP2 PO; +RSP3 PO; -SERT-234 PO
[2017-04-21 09:23] VITALS: TEMP 37.1; Ht 177.8 cm; Wt 83.0 kg
[2017-04-21 10:14] LABS: HEMATOCRIT 43.8 % (42-52); MEAN CELL VOLUME 87.4 fL (80-100); MEAN CORPUSCULAR HEMOGLOBIN 30.5 pg (25-34); MEAN CORPUSCULAR HGB CONC 34.9 g/dl (32-36); MEAN PLATELET VOLUME 9.1 fL (7.4-10.4); PLATELET COUNT 421 K/uL (130-400); RED BLOOD COUNT 5.01 M/uL (4.7-6.1); WHITE BLOOD COUNT 19.91 K/uL (4.8-10.8)
[2017-04-21 10:25] LABS: ALT/SGPT 23 U/L (12-78); BLOOD UREA NITROGEN 13 mg/dl (7-18); BUN/CREATININE RATIO 12.5 (10-20); CALCIUM 9.5 mg/dl (8.5-10.1); CARBON DIOXIDE 26 mmol/L (21-32); CHLORIDE 103 mmol/L (98-107); CREATININE 1.04 mg/dl (0.60-1.40); GLUCOSE 148 mg/dl (70-99); POTASSIUM 3.8 mmol/L (3.5-5.1); SODIUM 136 mmol/L (136-145)
[2017-04-21 10:28] LABS: BENZODIAZEPINE, URINE NEG (NEG); COCAINE,URINE NEG (NEG); PHENCYCLIDINE, URINE NEG (NEG)
[2017-04-21 10:36] LABS: ALKALINE PHOSPHATASE 107 U/L (45-117); AST/SGOT 14 U/L (15-37)
[2017-04-21 10:41] LABS: LITHIUM 0.2 mMOL/L (0.6-1.2)
[2017-04-21 10:43] LABS: ACETAMINOPHEN < 2 ug/ml (10-30)
[2017-04-21] MEDS ORDERED: RISP12.5 INJ (11:37)
[2017-04-21] MEDS ORDERED: OLANZAPINE ZYDIS 5 MG ORALLY DIS. TAB PO STA (11:44)
[2017-04-21 14:54] VITALS: BP 160/75; PULSE 98; O2SAT 98
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
== END 2017-04-21 14:55 ==
LOC: EDBD 09:08 → C.EDA 09:09
DX: Z00.8 Encounter for other general examination (principal); F31.2 Bipolar disorder, current episode manic severe with psychotic features; F95.2 Tourette's disorder; F42.9 Obsessive-compulsive disorder, unspecified

== ENCOUNTER 2018-01-11 06:55 | Emergency (ER) | payer OTHER ==
[~2018-01-11] VITALS: Ht 177.8 cm; Wt 87.5 kg
[~2018-01-11 06:55] MED LIST changes: -NICO7DIS7 TD; +RISP12.5 INJ
[2018-01-11 06:56] VITALS: Ht 177.8 cm; Wt 87.5 kg
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
[2018-01-11 07:45] LABS: BASO % 0.6 %; BASO ABS # 0.06 K/uL (0-0.2); EOS ABS # 0.11 K/uL (0-0.5); HEMOGLOBIN 16.4 g/dL (14.0-18.0); IG# 0.03 K/uL (0.00-0.02); LYMPH % 19.8 %; LYMPH ABS # 2.15 K/uL (1.2-3.4); MEAN CORPUSCULAR HEMOGLOBIN 30.7 pg (25-34); MEAN CORPUSCULAR HGB CONC 35.7 g/dl (32-36); MEAN PLATELET VOLUME 9.7 fL (7.4-10.4); MONO % 11.3 %; MONO ABS # 1.23 K/uL (0.11-0.59); NEUT ABS # 7.27 K/uL (1.4-6.5); PLATELET COUNT 327 K/uL (130-400); RED CELL DISTRIBUTION WIDTH CV 12.9 % (11.5-14.5); RED CELL DISTRIBUTION WIDTH SD 40.5 fL (36.4-46.3); WHITE BLOOD COUNT 10.85 K/uL (4.8-10.8)
[2018-01-11 08:15] LABS: ALBUMIN 4.8 gm/dl (3.4-5.0); CALCIUM 8.9 mg/dl (8.5-10.1); CREATININE 1.17 mg/dl (0.60-1.40); POTASSIUM 3.4 mmol/L (3.5-5.1)
[2018-01-11] MEDS ORDERED: NICOTINE POLACRILEX 2 MG GUM MT STA (09:16)
[2018-01-11] MEDS ORDERED: LORAZEPAM 1 MG TAB SL STA (10:48)
[2018-01-11] MEDS ORDERED: NICOTINE POLACRILEX 2 MG GUM ONE (13:47)
[2018-01-11] MEDS ORDERED: RISPERIDONE ODT 1MG PO SCH (16:00)
--- NOTE | 2018-01-11 16:09 | EMERGENCY ROOM VISIT NOTE ---
ED Visit Note First contact with patient: 16:08 I received this patient at change of shift signout from Dr. painter. Please see his note for initial history and physical exam. The patient is a 27-year-old male who has a history of bipolar disease. He does have a history of noncompliance with medications. He presented to the emergency department for 302 evaluation. The patient was medically cleared. The patient was evaluated by the mental health pillowcase cleaner. He was also evaluated by can help. After medical clearance a bed search is underway. At this time the patient has been compliant and he was accepted for inpatient treatment at [facility]. Transfer paperwork was filled out by myself.
[2018-01-11 17:55] VITALS: BP 153/66; PULSE 66; TEMP 36.9; O2SAT 98
== END 2018-01-11 15:45 ==
LOC: C.EDB 06:56 → C.EDA 15:45
DX: Z00.8 Encounter for other general examination (principal); F29 Unspecified psychosis not due to a substance or known physiological condition; F30.9 Manic episode, unspecified; F95.2 Tourette's disorder; F12.10 Cannabis abuse, uncomplicated; F31.9 Bipolar disorder, unspecified; F42.8 Other obsessive-compulsive disorder; F17.200 Nicotine dependence, unspecified, uncomplicated